=== PATIENT | male | born 1990 | race African-American/Black ===

== ENCOUNTER 2016-05-28 23:34 | Emergency (ER) | payer SELFPAY ==
[~2016-05-28] VITALS: Ht 185.4 cm; Wt 66.7 kg
--- NOTE | 2016-05-28 23:34 | NUR ---
PT BIB [facility], PREBOOK. TAKEN TO OF
[2016-05-28 23:46] VITALS: BP 120/73
[2016-05-28 23:48] VITALS: BP 120/73
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
--- NOTE | 2016-05-28 23:55 | NUR ---
Dr. Jaquez evaluating patient
--- NOTE | 2016-05-29 00:12 | NUR ---
Patient discharged with v/s stable. Written and verbal after care instructions given and explained. Patient verbalized understanding. Ambulatory with in custody. All questions addressed prior to discharge. Advised to follow up with PMD. BY P
== END 2016-05-29 00:12 ==
LOC: MED 23:34
DX: Z02.89 Encounter for other administrative examinations (principal); V89.2XXA Person injured in unspecified motor-vehicle accident, traffic, initial encounter; Y93.89 Activity, other specified; Y92.89 Other specified places as the place of occurrence of the external cause; Y99.8 Other external cause status